=== PATIENT | female | born 1995 | race African-American/Black ===

== ENCOUNTER 2023-03-11 12:35 | Emergency (ER) | payer MEDICAID ==
[~2023-03-11] VITALS: Ht 182.9 cm; Wt 75.0 kg
[2023-03-11 12:41] VITALS: O2SAT 100
[2023-03-11] MEDS ORDERED: ONDANSETRON 4MG ODT PO ONE (15:30)
[2023-03-11 15:51] LABS: BASOPHILS % 0.3 % (0.0-2.0); HEMATOCRIT. 38.8 % (36.0-48.0); HEMOGLOBIN. 12.7 g/dL (12.0-16.0); LYMPHOCYTES % 13.5 % (20.0-50.0); MEAN CORPUSCULAR HEMOGLOBIN 29.4 pg (28.0-32.0); MEAN CORPUSCULAR HGB CONC 32.8 g/dL (31.0-37.0); MEAN CORPUSCULAR VOLUME 89.7 fL (81.0-99.0); MEAN PLATELET VOLUME 8.2 fl (7.4-10.4); MONOCYTES % 5.5 % (2.0-8.0); NEUTROPHILS % 80.7 % (40.0-76.0); PLATELET 225 x1000/uL (130-400); RED BLOOD CELL COUNT 4.32 mill/uL (4.2-5.4); RED CELL DISTRIBUTION WIDTH 14.2 % (11.6-14.6); WHITE BLOOD COUNT 8.4 x1000/uL (4.5-11.0)
[2023-03-11 15:52] LABS: HCG SCREEN NEGATIVE
[2023-03-11 15:54] LABS: CHLORIDE 112 mEq/L (98-107); INDEX HEMOLYSI 1 (1-3); INDEX ICTERIC 1 (1-4); INDEX LIPEMIC 1 (1-3); POTASSIUM 3.9 mEq/L (3.5-5.1); SODIUM 142 mEq/L (136-145)
[2023-03-11 16:01] LABS: ALANINE AMINOTRANSFERASE 21 IU/L (13-61); ALBUMIN 4.3 g/dL (3.4-5.0); ASPARTATE AMINOTRANSFERASE 23 IU/L (15-37); BILIRUBIN TOTAL 0.6 mg/dL (0.1-1.0); CALCIUM 10.1 mg/dL (8.5-10.1); CARBON DIOXIDE 24 mEq/L (21-32); CREATININE 0.9 mg/dL (0.6-1.3); GLUCOSE 91 mg/dL (70-105); PROTEIN TOTAL 8.3 g/dL (6.0-8.3); UREA NITROGEN BLOOD 13 mg/dL (7-21)
[2023-03-11] MEDS ORDERED: ONDA4TAB11 PO (17:21)
[2023-03-11 19:04] VITALS: BP 124/87; PULSE 88; RESP 18; TEMP 98.8
== END 2023-03-11 19:06 | disposition home or self-care (01) ==
LOC: ER 13:27
DX: R07.9 Chest pain, unspecified (principal); R11.0 Nausea
CPT/HCPCS: 99285; 71045; 80053; 84703; 83690; 85025; 36415; 93005; Q0162

== ENCOUNTER 2024-05-18 06:43 | Emergency (ER) | payer MEDICAID ==
[~2024-05-18] VITALS: Ht 175.3 cm; Wt 77.0 kg
[~2024-05-18 06:43] MED LIST: ONDA-239 PO
[2024-05-18 06:46] VITALS: O2SAT 99
[2024-05-18] MEDS: ONDANSETRON 4MG ODT PO STA (06:57)
[2024-05-18 07:35] LABS: CLARITY URINE CLEAR (CLEAR); COLOR URINE YELLOW (YELLOW); GLUCOSE URINE NEGATIVE (NEGATIVE); KETONES URINE 2+ (NEGATIVE); LEUKOCYTE ESTERASE URINE NEGATIVE (NEGATIVE); NITRITE URINE NEGATIVE (NEGATIVE); OCCULT BLOOD URINE 3+ (NEGATIVE); PROTEIN URINE TRACE (NEGATIVE); SPECIFIC GRAVITY URINE 1.024 (1.005-1.030); UROBILINOGEN URINE 0.2 E.U./dL (0.2-1.0)
[2024-05-18] MEDS: HALOPERIDOL LACTATE 5MG/ML VIAL IM NR (07:40)
[2024-05-18 07:58] LABS: BASOPHILS % 0.4 % (0.0-2.0); EOSINOPHILS % 0.4 % (0.0-5.0); HEMATOCRIT. 40.7 % (36.0-48.0); HEMOGLOBIN. 13.4 g/dL (12.0-16.0); MEAN CORPUSCULAR HEMOGLOBIN 30.7 pg (28.0-32.0); MEAN CORPUSCULAR HGB CONC 32.9 g/dL (31.0-37.0); MEAN CORPUSCULAR VOLUME 93.5 fL (81.0-99.0); MEAN PLATELET VOLUME 8.1 fl (7.4-10.4); MONOCYTES % 4.9 % (2.0-8.0); NEUTROPHILS % 78.3 % (40.0-76.0); PLATELET 230 x1000/uL (130-400); RED BLOOD CELL COUNT 4.35 mill/uL (4.2-5.4); RED CELL DISTRIBUTION WIDTH 13.7 % (11.6-14.6); WHITE BLOOD COUNT 10.3 x1000/uL (4.5-11.0)
[2024-05-18 08:03] LABS: BACTERIA URINE 1+; RBC URINE 15-25 /hpf (0-2); SQUAMOUS EPITHELIAL CELL URINE FEW /lpf (RARE/1+); WBC URINE 0-2 /hpf (0-2); YEAST URINE NONE SEEN
[2024-05-18 08:17] LABS: CHLORIDE 108 mEq/L (98-107); POTASSIUM 3.6 mEq/L (3.5-5.1)
[2024-05-18 08:18] LABS: SODIUM 141 mEq/L (136-145)
[2024-05-18 08:19] LABS: CALCIUM 9.4 mg/dL (8.7-10.4); CARBON DIOXIDE 24 mEq/L (21-32)
[2024-05-18 08:24] LABS: GLUCOSE 108 mg/dL (70-105); UREA NITROGEN BLOOD 16 mg/dL (9-23)
[2024-05-18 10:35] VITALS: BP 127/82; PULSE 75; RESP 18; TEMP 36.78072; O2SAT 98
[2024-05-18 11:46] LABS: ALANINE AMINOTRANSFERASE 20 IU/L (10-49)
[2024-05-18 11:47] LABS: ALBUMIN 4.4 g/dL (3.2-4.8); ASPARTATE AMINOTRANSFERASE 29 IU/L (<34); BILIRUBIN DIRECT 0.1 mg/dL (<=3.0); BILIRUBIN TOTAL 0.5 mg/dL (0.1-1.0); PROTEIN TOTAL 6.9 g/dL (6.0-8.3)
== END 2024-05-18 10:46 | disposition home or self-care (01) ==
LOC: ER 06:43
DX: R11.2 Nausea with vomiting, unspecified (principal)
CPT/HCPCS: 99283; 80076; 80048; 81003; 81025; 83690; 85025; 36415; 96372; Q0162; J1630